=== PATIENT | male | born 1960 | race Two or more races ===

== ENCOUNTER → 2016-09-11 | Day surgery (SDC) | payer OTHER ==
[~2016-09-11] VITALS: Ht 162.6 cm; Wt 60.0 kg
[2016-09-11] VITALS (13 sets, daily range): BP systolic 100–177; BP diastolic 56–91; PULSE 16–75; RESP 11–26; Ht 162.6 cm; Wt 60.0 kg
[~2016-09-11] MED LIST: AMLO-147 PO; AMO500 PO; AMOX1TAB9 PO; CEFEPIME 2GM/50 ML (PMX) 50 ML IVPB ONE; CIPR500T4 PO; EPHEDrine SULFATE 50 MG/5 ML SYG IV PRN; FENTAnyl 50 MCG/ML VIAL IV PRN; GLYCOPYRROLATE 0.4 MG INJ ONE; HYDROmorphONE (0.2 MG/ML) 10ML SYG IV PRN; IBUP-1542 PO; LABETALOL HCL 20MG INJ IV PRN; LIDOCAINE 2% (SDV) 5 ML INJ ONE; MEPERIDINE 25 MG INJ IV PRN; NEOSTIGMINE 3 MG/3 ML SYRINGE ONE; ONDANSETRON 4 MG INJ IV PRN; OXYCODONE/ACETAMINOPHEN (5/325) TAB PO PRN; PHEN-612 PO; PROPOFOL 20 ML ONE; ROCURONIUM 50 MG INJ ONE; TAMS0.4C2 PO; hydrALAzine 20 MG INJ IV PRN
--- NOTE | 2016-09-11 16:09 | PREOPHP ---
DATE OF ADMISSION: 09/11/2016 CHIEF COMPLAINT: Foreign body in the bladder. HISTORY OF PRESENT ILLNESS: This is a 48-year-old male who was having trouble with his urination, t herefore, he inserted a straw-like material inside his urethra to relieve himself. The straw apparen tly retracted all the way into his urethra and he has been unable to remove the foreign body. Patie nt underwent a cystoscopy by Dr. Cheung who indicated that he noticed he found a "glow stick" in the bladder. 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 The patient's urinary habits are as follows, nocturia x4, force of stream slow, sensation of incompl ete bladder emptying, straining intermittency, occasional frequency every 4 hours, urgency every 4 h ours, urge incontinence no longer present. PAST MEDICAL HISTORY: None. SURGICAL HISTORY: Circumcision. MEDICATIONS: Pain medications twice daily. ALLERGIES: NO KNOWN DRUG ALLERGIES. SOCIAL HISTORY: Occasional cigarettes, occasional alcohol. FAMILY HISTORY: No cancer. PHYSICAL EXAMINATION: CONSTITUTIONAL: The patient appears in no acute distress. GASTROINTESTINAL: Abdomen is soft, normal bowel sounds, nondistended, nontender. Hernia exam none noted. Liver and spleen normal. GENITOURINARY: Scrotum no lesions, no edema, no erythema, mass, rash, or cysts. Epididymis symmetr ic, normal size, normal texture, nontender. Urethral meatus normal in size and location. Testes de scended bilaterally. Bladder, no fullness. NECK: Normal appearing, symmetric. Normal tracheal position. EXTREMITIES: No edema. ASSESSMENT: 1. Foreign body in the bladder, possible straw or glow stick. 2. Possible history of urethral lesion. 3. Lower urinary tract symptoms including slow urinary stream intermittency. SURGEON: I have spoken to the patient in detail about his condition. We discussed various options. Among these options, I have recommended and patient has elected to undergo a cystoscopy with attem pt at the removal of the bladder foreign bodies cystoscopically with possible need for laser lithotr ipsy of encrusted foreign body and possible need to convert to open cystotomy cystolithotomy or cyst otomy with removal of the foreign body. This procedure has been explained to the patient in detail. Risk, benefits have been discussed. He understands risks include, but are not limited to infectio n, bleeding, damage to adjacent structures, heart problems, lung problems, possibility of need for f urther surgery, DVT, PE, UT, CVA, nonresolution of symptoms, recurrence of symptoms, need for other treatments, need for other surgeries, bladder injury, urethral injury, fistula formation, inability to remove the entire foreign body in 1 setting, ureteral injury stricture formation. All of his que stions have been answered, no guarantees given. He would like to proceed. Dictated By: LISSETT COURTNEY MD SR/NTS Conf#: [id number] DID#: [id number]
--- NOTE | 2016-09-11 16:59 | PDOCDIS ---
Discharge Instructions CONDITION Patient Condition: Fair HOME CARE INSTRUCTIONS: Diet Instructions: Regular ACTIVITY: Activity Restrictions: Slowly Increase Activity Bathing Restrictions: Shower FOLLOW UP/APPOINTMENTS Appointments 1 - 2 weeks LISSETT COURTNEY Sep 11, 2016 16:59
--- NOTE | 2016-09-11 16:59 | OPPN ---
Date/Time of Note Date/Time of Note DATE: 09/11/16 TIME: 16:56 Operative/Procedure Note Pre-Operative Diagnosis Foreign body in bladder Post-Operative Diagnosis foreign body in bladder Procedure cystoscopy, lithotripsy and lithotomy of calcified foreign body (straw or glow stick) removal of foreign body Surgeon: LISSETT COURTNEY Estimated blood loss: 0 - 10 ml's Drains 18 fr sanz Specimens foreign body bladder and stones on bladder Complications: None Anesthesia type: general LISSETT COURTNEY Sep 11, 2016 16:59
--- NOTE | 2016-09-11 18:19 | OPR ---
DATE OF OPERATION: 09/11/2016 PREOPERATIVE DIAGNOSIS: Foreign body in the bladder. POSTOPERATIVE DIAGNOSIS: Foreign body in the bladder (glow stick or straw). PROCEDURE PERFORMED: 1. Cystoscopy, laser lithotripsy of encrusted foreign body in the bladder. 2. Cystoscopy with stone crushing of foreign body in the bladder. 3. Cystoscopy with removal of foreign body from bladder. INDICATIONS FOR PROCEDURE: This patient has a history of a foreign body in his bladder. He is sche duled to undergo the above-said procedure. The procedure has been explained to the patient in detai l. Risk, benefits have been discussed. He understands risks include but are not limited to infecti on, bleeding, damage to adjacent structures, heart problems, lung problems, possibility of need for further surgery, DVT, PE, [place], CVA, nonresolution of symptoms, bladder injury, urethral injury, ureth ral stricture, inability to remove the entire foreign body. All of his questions have been answered , no guarantees given. He would like to proceed. FINDINGS: A large thin foreign body was found in the bladder with heavy encrustation. The 2 ends o f the foreign body essentially had become imbedded into the mucosa of the bladder. The foreign body was about 12 cm in length. The entire foreign body was removed in 1 piece. The encrustations were crushed with stone credit and collection manager as well as laser lithotripsy. ROCEDURE IN DETAIL: The patient was brought to the operating room, underwent general anesthesia. H e was placed in lithotomy position. Abdomen, perineum and genitalia were prepped and draped in usua l sterile fashion. A 23-Urdu cystoscope was placed into the bladder. Urethra appeared to be infl kodi. Bilateral lateral lobe obstruction as well as elevated bladder neck were identified. Bladder was entered. Once entering the bladder, a calcified piece of foreign body was identified which was embedded into posterior bladder wall as well as the anterior bladder wall. The stone credit and collection manager was t hen used to crush some of the stones off the foreign body. Next, laser lithotripsy was performed us ing a 1000 micron fiber at settings of 0.5 kilojoules and 5 Hz. As the stones were treated off the foreign body, foreign body was more visible. At this point, the stone credit and collection manager was used to dislodge the 2 ends of the foreign body, which had become embedded into the mucosa. At this point, 1 end of the foreign body was grasped. The cystoscope was retracted. The foreign body was completely excise d and was removed out of the bladder. Cystoscopy was re-performed. Urethra appeared to be intact. Bladder was examined. There was severe bladder irritation, erythema, bullous edema. Ureteral orif ices were orthotopic. However, there was edema around the orifices. Some remaining stones in the b ladder were found which were further lasered with the 1000 micron laser fiber. At this point, the b ladder was copiously irrigated until all the small stone fragments were removed. Next, a Bugbee poli ctrode was used to obtain hemostasis from the trigone of the bladder where there was some bleeding. Furthermore, a small amount of bleeding at the 6-o'clock position posteriorly in the urethra was al so cauterized. The cystoscope was discontinued. An 18-Urdu Silastic catheter was placed. Cathet er was hand irrigated. Irrigant was light pink to clear. The patient was then placed back in the s upine position. He was awakened, extubated, taken to recovery room. POSTOPERATIVE CONDITION: Stable. COMPLICATIONS: None. BLOOD LOSS: Minimal. BLOOD ADMINISTERED: None. SPECIMENS SENT TO LABORATORY: Foreign body from the bladder which appeared to be either a straw or a thin glow stick. Stones were also sent for chemical analysis. The size of the straw was about 12 cm in length. Dictated By: LISSETT COURTNEY MD, SR/ANSHU Conf#: [id number] DID#: [id number]
--- NOTE | 2016-09-11 18:22 | DS ---
DATE OF ADMISSION: 09/11/2016 DATE OF DISCHARGE: 09/11/2016 ADMITTING DIAGNOSIS: Foreign body in bladder. DISCHARGE DIAGNOSIS: Foreign body in the bladder. HOSPITAL COURSE: The patient was admitted to the hospital, underwent a cystoscopy with removal of f oreign body and lithotripsy of encrustation on the foreign body. He tolerated procedure well. He w as transferred to recovery room. Once the patient was stable, tolerating his diet, remaining afebri le and pain was well controlled, he was discharged home. DISCHARGE INSTRUCTIONS: Activity as tolerated. No heavy lifting. The patient may shower. Follow up in 1 to 2 weeks. MEDICATIONS: The patient is to continue his Augmentin which was prescribed preoperatively. Dictated By: LISSETT COURTNEY MD SR/NTS Conf#: [id number] DID#: [id number]
== END | disposition home or self-care (01) ==
LOC: EDBD 12:17 → SDS 12:17
PROVIDERS: ATTEND Surgery Surgical Oncology
DX: N21.0 Calculus in bladder (principal); T19.1XXA Foreign body in bladder, initial encounter; X58.XXXA Exposure to other specified factors, initial encounter; Y93.89 Activity, other specified; Y99.8 Other external cause status; Y92.89 Other specified places as the place of occurrence of the external cause; I10 Essential (primary) hypertension
CPT/HCPCS: 88300; J0692; J2710; J3010